=== PATIENT | female | born 1950 | race Caucasian/White ===

== ENCOUNTER 2020-06-04 05:15 | Observation (INO) ==
--- NOTE | 2020-05-16 11:04 | PAT Medication Instructions ---
Medication Instructions Date of Service May 16, 2020 Home Medications Calcium Elemental 800 mg PO HS Curcumin Otc 40 mg PO QAM cholecalciferol (vitamin D3) [Vitamin D3] 50 mcg PO HS glucosamine-chondroitin [Osteo Bi-Flex] 1 tab PO BID meloxicam 15 mg PO QAM naproxen sodium 440 mg PO HS omega 9-jty-rtk-fish oil [Fish Oil] 1,200 cap PO HS omeprazole 20 mg PO BID ICaps 1 tab PO BID ASK your surgeon for instructions meloxicam 15 mg PO QAM naproxen sodium 440 mg PO HS STOP taking 2 weeks before surgery (or as soon as possible if surgery is within 2 weeks) Curcumin Otc 40 mg PO QAM glucosamine-chondroitin [Osteo Bi-Flex] 1 tab PO BID omega 0-hla-fum-fish oil [Fish Oil] 1,200 cap PO HS ICaps 1 tab PO BID Take morning of surgery omeprazole 20 mg PO BID Take evening before surgery Calcium Elemental 800 mg PO HS cholecalciferol (vitamin D3) [Vitamin D3] 50 mcg PO HS omeprazole 20 mg PO BID Other Notes If you have any questions please call us at [phone] or [phone] or [phone] or [phone]
--- NOTE | 2020-05-20 14:37 | Anesthesiology Consultation ---
Date of Service May 20, 2020 Assessment & Plan (1) Encounter for pre-operative examination: COVID Status: As of 05/20 assessment, patient denies travel to endemic area, known exposure/sick contacts, or symptoms of COVID19. Patient instructed that they and their household members must follow strict social distancing guidelines, wear a mask in public and avoid travel/events/gatherings for 14 days prior to surgery. Preoperative COVID19 testing to be completed prior to surgery per surgeon's arrangements. Patient made aware to self-isolate as much as possible between COVID testing and surgery. PATIENT GOES BY "[facility]." Chart Review Chart Review: Acceptable Risk for Surgery (pending surgeon ordered PCP clearance) and Patient seen in Pre Admission Testing Teaching & Discussion Instructed NPO after midnight before surgery, except medications with 15 cc of water. Medication instructions provided according to the PAT guidelines. History Surgery Operation Date: 06/04/20 07:45 Proposed Procedures p Right Total Knee Arthroplasty - Adonis Caldera, Height/Weight Height: 5 ft 5 in Weight: 106.5 kg Allergies Allergy/AdvReac Type Severity Reaction Status Date / Time nickel Allergy Unknown ITCHY WITH Verified 05/07/20 15:05 PROLONGED EXPOSURE Tetanus Vaccines and Toxoid Allergy Unknown ARM SWELLED Verified 05/07/20 15:04 Medications Home Medications Medication Instructions Recorded Confirmed Last Taken Calcium Elemental 800 mg PO HS 05/07/20 05/07/20 Unknown Curcumin Otc 40 mg PO QAM 05/07/20 05/07/20 Unknown cholecalciferol (vitamin D3) 50 mcg PO HS 05/07/20 05/07/20 Unknown [Vitamin D3] glucosamine-chondroitin [Osteo 1 tab PO BID 05/07/20 05/07/20 Unknown Bi-Flex] meloxicam 15 mg PO QAM 05/07/20 05/07/20 Unknown naproxen sodium 440 mg PO HS 05/07/20 05/07/20 Unknown omega 1-cdh-gzo-fish oil [Fish Oil] 1,200 cap PO HS 05/07/20 05/07/20 Unknown omeprazole 20 mg PO BID 05/07/20 05/07/20 Unknown mniK-[id number]-P-V-ivmjlj-vcvqhsr-min 1 tab PO BID 05/07/20 05/07/20 Unknown [ICaps] Past Medical History Medical History (Updated 05/20/20 @ 14:40 by Asa Echevarria) Chronic back pain Diverticular disease GERD (gastroesophageal reflux disease) SOB (shortness of breath) on exertion SEDENTARY LIFESTYLE Exercise / Class Metabolic Activity II 4-5 Yardwork/Stairs/Walk up hill (Has to go up 10 steps into her house daily, mild SOB at the top, denies any chest pain) Past Family History Family History (Updated 05/07/20 @ 15:14 by Ting Carrera RN) Grandfather (Paternal) Family history of diabetes mellitus Grandmother (Paternal) Family history of diabetes mellitus Brother Family history of diabetes mellitus Sister Family history of diabetes mellitus Past Surgical History Surgical History History of bilateral tubal ligation History of colonoscopy History of esophagogastroduodenoscopy (EGD) Past Anesthesia History No Hx of Anesthesia Complications and No Family Hx of Anesthesia Complications History of PONV No Hx of PONV and No Hx of Motion Sickness Social History Smoking Status: Never smoker Do You Dip or Chew Tobacco: No Hx Alcohol Use: No Hx Substance Use: No Review of Systems Pt denies any recent chest pain, shortness of breath, palpitations, cough, fever, URI, or uncontrolled acid reflux (controlled with PPI). Physical Exam Vital Signs BP: 132/76 P: 88bpm SPO2: 97% RA T: 98.7 F R: 16 ENMT Mouth: + chipped teeth (chips in rear molars); no dental restorations and no loose teeth Thyromental Distance: > or= 3.5 Finger Breadths Mallampati Class: I Neck + short neck; neck extension not limited Respiratory normal respiratory effort, lungs clear to auscultation Cardiovascular RRR, no murmur, no edema Testing Laboratory Results 05/20/20 14:49 05/20/20 14:49 PT 10.4 Seconds (9.0-12.0) 05/20/20 14:49 INR 1.0 (0.9-1.1) 05/20/20 14:49 APTT 27.9 Seconds (21.0-31.0) 05/20/20 14:49 Hemoglobin A1c 5.8 % (4.5-5.6) H 05/20/20 14:49 Urine Color Dark Yellow 05/20/20 14:49 Urine Appearance Clear (Clear) 05/20/20 14:49 Urine pH 6.0 (4.5-7.5) 05/20/20 14:49 Ur Specific [place] 1.020 (1.000-1.030) 05/20/20 14:49 Urine Protein Negative (Negative) 05/20/20 14:49 Urine Glucose (UA) Negative (Negative) 05/20/20 14:49 Urine Ketones Trace (Negative) H 05/20/20 14:49 Urine Nitrite Negative (Negative) 05/20/20 14:49 Ur Leukocyte Esterase 1+ (Negative) H 05/20/20 14:49 Urine WBC (Auto) 1-5 /hpf (0-5) 05/20/20 14:49 Urine RBC (Auto) 0-4 /hpf (0-4) 05/20/20 14:49 U Hyaline Cast (Auto) 1-5 /lpf (0-5) 05/20/20 14:49 U Epithel Cells (Auto) >30 /lpf (0-5) H 05/20/20 14:49 Urine Bacteria (Auto) Negative (Negative) 05/20/20 14:49 Blood Type O Positive 05/20/20 14:49 Antibody Screen NEGATIVE 05/20/20 14:49 Electrocardiogram Date: 05/20/20 Findings: + NSR @ (79bpm) Chest X-Ray Date: 05/20/20 Findings: + NAD
--- NOTE | 2020-05-20 15:36 | XRay Report ---
XR chest Pre-admission PA/Lat CLINICAL HISTORY: Preoperative chest COMPARISON STUDY: No previous studies for comparison. FINDINGS: The cardiac and mediastinal contours are normal. There is no evidence of focal pulmonary co nsolidation. There is no evidence of failure. No pleural effusions are visualized.[ IMPRESSION: No active disease in the chest. ACT 112: Negative or not required by law. Electronically signed by: Saman Diamond M.D. 05/20/2020 3:35 PM
[2020-05-20 16:13] LABS: Basophils # (auto) 0.03 K/uL (0-0.2); Basophils % (auto) 0.5 %; Eosinophils # (auto) 0.22 K/uL (0-0.5); Eosinophils % (auto) 3.4 %; Hematocrit (blood only) 44.5 % (37-47); Hemoglobin 14.7 g/dL (12.0-16.0); Lymphocytes # (auto) 2.17 K/uL (1.2-3.4); Lymphocytes % (auto) 33.2 %; Mean Corpuscular Hemoglobin 28.3 pg (25-34); Mean Corpuscular Volume 85.7 fL (80-100); Mean Platelet Volume 10.2 fL (7.4-10.4); Monocytes # (auto) 0.48 K/uL (0.11-0.59); Monocytes % (auto) 7.4 %; Neutrophils # (auto) 3.63 K/uL (1.4-6.5); Neutrophils % (auto) 55.5 %; Platelet Count 305 K/uL (130-400); RDW Standard Deviation 46.8 fL (36.4-46.3); Red Blood Count 5.19 M/uL (4.2-5.4); White Blood Count 6.53 K/uL (4.8-10.8)
[2020-05-20 16:19] LABS: Appearance Urine Clear (Clear); Bacteria Urine Automated Negative (Negative); Bilirubin Urine Negative (Negative); Blood Urine Negative (Negative); Color Urine Dark Yellow; Epithelial Cell Urine Auto >30 /lpf (0-5); Glucose Urine UA Negative (Negative); Ketones Urine Trace (Negative); Leukocyte Esterase Urine 1+ (Negative); Nitrite Urine Negative (Negative); Protein Urine Negative (Negative); RBC Urine Automated 0-4 /hpf (0-4); Urobilinogen Urine Negative (Negative)
[2020-05-20 16:27] LABS: Partial Thromboplastin Time 27.9 Seconds (21.0-31.0); Prothrombin Time 10.4 Seconds (9.0-12.0)
[2020-05-20 16:39] LABS: Albumin Level 3.7 gm/dl (3.4-5.0); BUN Creatinine Ratio 11.4 (10-20); Calcium 9.6 mg/dl (8.5-10.1); Creatinine Clr Calc Pharmacy 71.9 ml/min; Est GFR (African American) 74.7; Est GFR (Non-African American) 64.4; Potassium 4.4 mmol/L (3.5-5.1)
--- NOTE | 2020-05-20 16:49 | Electrocardiogram Report ---
Test Reason : Blood Pressure : / mmHG Vent. Rate : 079 BPM Atrial Rate : 079 BPM P-R Int : 156 ms QRS Dur : 088 ms QT Int : 382 ms P-R-T Axes : 051 063 030 degrees QTc Int : 438 ms Normal sinus rhythm Normal ECG No previous ECGs available Confirmed by Sergio Azar ([id number]) on 05/20/2020 4:48:37 PM Referred By: Adonis Caldera Confirmed By:Chip Azar
[2020-05-21 06:31] LABS: Estimated Average Glucose 120 mg/dl; Hemoglobin A1C 5.8 % (4.5-5.6)
--- NOTE | 2020-06-02 10:53 | History & Physical Report ---
Date of Service June 04, 2020 Assessment & Plan (1) Degenerative joint disease of knee, right: I have indicated the patient for right total knee replacement. The risks, benefits and complications of surgery were explained to the patient which include but not limited to infection, acute blood loss, DVT/PE, injury to nerves, vessels, bone, soft tissue, arthrofibrosis, chronic pain, failure of the prosthesis, knee dislocation, leg length discrepancy, need for additional surgery, cardiac and pulmonary events and . The patient wished to proceed with surgery and informed consent was obtained at this time. We will plan for 81mg ASA BID post-operatively for DVT prophylaxis. Upon discharge the patient will be discharged home with home health services. Appropriate clearances by PCP were obtained. History of Present Illness Chief Complaint: Right knee pain/DJD Primary Care Provider: Nathaniel Mendosa DO The patient is a 70 year old female who presents with complaints of severe right knee pain and DJD. The patient has failed outpatient conservative treatments to this point which included NSAIDs, Bracing, IA corticosteroid i njection, PT and a home exercise/walking program. The patient's pain and limited function have progressed to the point where they severely hinder their activities of daily living and they no longer tolerate exercise programs. They are requesting to proceed with total knee replacement surgery. Allergies Allergy/AdvReac Type Severity Reaction Status Date / Time nickel Allergy Unknown ITCHY WITH Verified 06/04/20 05:46 PROLONGED EXPOSURE Tetanus Vaccines and Toxoid Allergy Unknown ARM SWELLED Verified 06/04/20 05:46 Home Medications Medication Instructions Recorded Confirmed Type Calcium Elemental 800 mg PO HS 05/07/20 06/04/20 History Curcumin Otc 40 mg PO QAM 05/07/20 06/04/20 History cholecalciferol (vitamin D3) 50 mcg PO HS 05/07/20 06/04/20 History [Vitamin D3] glucosamine-chondroitin [Osteo 1 tab PO BID 05/07/20 06/04/20 History Bi-Flex] meloxicam 15 mg PO QAM 05/07/20 06/04/20 History naproxen sodium 440 mg PO HS 05/07/20 06/04/20 History omega 6-kaw-ivm-fish oil [Fish Oil] 1,200 cap PO HS 05/07/20 06/04/20 History omeprazole 20 mg PO BID 05/07/20 06/04/20 History ykuC-E4-Y-X-znyetx-sqdqteb-min 1 tab PO BID 05/07/20 06/04/20 History [ICaps] Past Med/Surg History Medical History Chronic back pain Diverticular disease GERD (gastroesophageal reflux disease) SOB (shortness of breath) on exertion SEDENTARY LIFESTYLE Surgical History History of bilateral tubal ligation History of colonoscopy History of esophagogastroduodenoscopy (EGD) Family History Grandfather (Paternal) Family history of diabetes mellitus Grandmother (Paternal) Family history of diabetes mellitus Brother Family history of diabetes mellitus Sister Family history of diabetes mellitus Social History Smoking Status: Never smoker Do You Dip or Chew Tobacco: No; Hx Alcohol Use: No Hx Substance Use: No Preferred Language: Barbadian Communication Ability: Effective Sonography Technician Required: No Beliefs That Will Affect Care: None Current Living Situation: Spouse Other Information That Helps Us Care for You: No Feels Safe at Home: Yes Safety Concerns: Feels Safe At This Time Assistive Devices: Brace/Splint/Immobilizer, Cane and Glasses Review of Systems Review of Systems: All systems reviewed & are unremarkable except as noted in HPI & below Constitutional: as per Subjective / HPI Physical Exam Physical Exam: RLE NVSI +EHL/FHL/TA/GS SILT grossly, +2 DP pulse, compartments soft NT, limited painful ROM of the knee, 10-95 degrees flexion, + crepitus. Constitutional: WD/WN, vitals as above Eyes: PERRL, conjunctivae normal, anicteric sclerae ENMT: external ear and nose normal, oropharynx normal Neck: trachea midline, no thyromegaly Respiratory: normal respiratory effort, lungs clear to auscultation Cardiovascular: RRR, no murmur, no edema Gastrointestinal (Abdomen): normal bowel sounds, soft, nontender, no hepatosplenomegaly Musculoskeletal: no cyanosis or clubbing, extremities motor strength 5/5 Skin: no rashes, warm and dry Neurologic: patellar DTR's 2+ bilat, sensation intact Psychiatric: A+Ox3, euthymic affect Lymphatic: no cervical or axillary lymphadenopathy Results & Data Results & Data ([facility]) Diagnostic Findings Multiple views of the knee demonstrates severe tricompartmental DJD with complete loss of the lateral and PF joint space. +osteophytes, +sclerosis, +subchondral cysts. Pre Admission Testing Addendum Laboratory Results 05/20/20 14:49 05/20/20 14:49 PT 10.4 Seconds (9.0-12.0) 05/20/20 14:49 INR 1.0 (0.9-1.1) 05/20/20 14:49 APTT 27.9 Seconds (21.0-31.0) 05/20/20 14:49 Hemoglobin A1c 5.8 % (4.5-5.6) H 05/20/20 14:49 Urine Color Dark Yellow 05/20/20 14:49 Urine Appearance Clear (Clear) 05/20/20 14:49 Urine pH 6.0 (4.5-7.5) 05/20/20 14:49 Ur Specific [place] 1.020 (1.000-1.030) 05/20/20 14:49 Urine Protein Negative (Negative) 05/20/20 14:49 Urine Glucose (UA) Negative (Negative) 05/20/20 14:49 Urine Ketones Trace (Negative) H 05/20/20 14:49 Urine Nitrite Negative (Negative) 05/20/20 14:49 Ur Leukocyte Esterase 1+ (Negative) H 05/20/20 14:49 Urine WBC (Auto) 1-5 /hpf (0-5) 05/20/20 14:49 Urine RBC (Auto) 0-4 /hpf (0-4) 05/20/20 14:49 U Hyaline Cast (Auto) 1-5 /lpf (0-5) 05/20/20 14:49 U Epithel Cells (Auto) >30 /lpf (0-5) H 05/20/20 14:49 Urine Bacteria (Auto) Negative (Negative) 05/20/20 14:49 Blood Type O Positive 05/20/20 14:49 Antibody Screen NEGATIVE 05/20/20 14:49 05/20/20 14:49 Urine Culture - Final Urine,Clean Catch Three types of organisms present, all low counts probable skin christina. No further identifications or sensitivities to follow.
[~2020-06-04 05:15] MED LIST: TRANEXAMIC ACID 1,000 MG **IV Pre-op IV SCH
[2020-06-04] MEDS ORDERED: ceFAZolin 2000MG 2,000 MG/15 ML SYR IV SCH (06:00)
[2020-06-04] MEDS ORDERED: ROPIVACAINE 0.5% HCL/PF 150 MG, BUPIVACAINE 0.75% MPF 20 ML, EPINEPHrine 30MG/30ML (OR ... INSTIL SCH (06:00)
[2020-06-04] MEDS ORDERED: TRANEXAMIC ACID 1,000 MG **IV Pre-op IV SCH ×2 (06:00)
[2020-06-04] MEDS ORDERED: CeleBREX 200 MG CAP PO SCH (06:00)
[2020-06-04] MEDS ORDERED: FAMOTIDINE 20 MG TAB PO SCH (06:00)
[2020-06-04] MEDS ORDERED: dexAMETHasone 4 MG TAB PO SCH (06:00)
[2020-06-04] MEDS ORDERED: LR 500ML BOLUS, THEN 15ML/HR IV SCH (06:00)
[2020-06-04] MEDS ORDERED: METOCLOPRAMIDE HCL 10 MG TABLET PO SCH (06:00)
[2020-06-04] MEDS ORDERED: TRANEXAMIC ACID 1,000 MG **IV Intra-op IV SCH (06:15)
[2020-06-04] MEDS ORDERED: BUPIVACAINE 0.5 % 5 MG/1 ML PF 10ML VIAL ONE (06:24)
[2020-06-04] MEDS ORDERED: EPINEPHrine INJ 1 MG/ML AMP ONE (06:24)
[2020-06-04] MEDS ORDERED: BUPIVACAINE 0.25% 30 ML VIAL ONE (06:25)
[2020-06-04] MEDS ORDERED: fentaNYL citrate 100 MCG/2 ML VIAL ONE (06:47)
[2020-06-04] MEDS ORDERED: PROPOFOL IV EMULSION 10 MG/ML 20 ML VIAL IV ONE ×3 (06:47→08:39)
[2020-06-04] MEDS ORDERED: LIDOCAINE HCL 2% 2 ML VIAL/AMP(20MG/ML) INFIL ONE (06:47)
[2020-06-04] MEDS ORDERED: MIDAZOLAM HCL 1 MG/ML 2ML VIAL ONE ×2 (06:47→07:33)
[2020-06-04] MEDS ORDERED: BACITRACIN INJ 50,000 UNIT VIAL ONE (07:00)
[2020-06-04] MEDS ORDERED: ORTHO JOINT ANESTHETIC ONE (07:00)
--- NOTE | 2020-06-04 07:00 | History & Physical Bridge Note ---
Date of Service June 04, 2020 History & Physical Bridge Note I have examined the patient, reviewed the History & Physical and in the interval since the performance of the History & Physical I have noted the following changes of clinical significance: no changes noted
[2020-06-04] MEDS ORDERED: HYDROmorphone INJ 2 MG/ML SYR/VIAL IV PRN (07:26)
[2020-06-04] MEDS ORDERED: ONDANSETRON INJ 2 MG/ML 2 ML VIAL IV PRN ×2 (07:26→11:13)
[2020-06-04] MEDS ORDERED: PROMETHAZINE HCL 12.5 MG in SODIUM CHLORIDE 0.9% 50 ML IV PRN (07:26)
[2020-06-04] MEDS ORDERED: fentaNYL citrate 100 MCG/2 ML VIAL IV PRN (07:26)
[2020-06-04] MEDS ORDERED: ATROPINE SULFATE 0.1 MG/ML 10ML SYR IV PRN (07:26)
[2020-06-04] MEDS ORDERED: ePHEDrine sulfate 50 MG/ML AMP IV PRN (07:26)
[2020-06-04] MEDS ORDERED: ONDANSETRON INJ 2 MG/ML 2 ML VIAL ONE (07:56)
[2020-06-04] MEDS ORDERED: KETAMINE 50 MG/5 ML SYRINGE ONE (09:05)
[2020-06-04] MEDS ORDERED: GLYCOPYRROLATE 0.2 MG/ML VIAL ONE (09:06)
--- NOTE | 2020-06-04 09:23 | Post Operative Brief Note ---
Immediate Post Op Note v1 Date of Surgery June 04, 2020 Pre & Post Diagnosis Operation Date: 06/04/20 07:15 Pre-Op Diagnosis: Unilateral Priamry Osteoarthritis, Right Knee Post-Op Diagnosis: Unilateral Priamry Osteoarthritis, Right Knee I identified the patient and participated in the time-out.: Yes Procedure Operation Date: 06/04/20 07:15 Actual Procedures p Right Total Knee Arthroplasty(Right) - Adonis Caldera DO Surgeon Adonis Caldera DO Corporate Ethics Officer Cedrick Pineda Estimated Blood Loss 60 Findings Consistent with Post-Op Diagnosis Fluids 1 L LR Specimens Proximal tibia and distal femur bone fragment Drains Hemovac Drain Anesthesia Type Spinal MAC Complications none Disposition Disposition: Recovery Room Overlapping Procedure I was present for: the critical portions of procedure. I was immediately available: during the entire case. Back up surgeon: was not required during procedure.
--- NOTE | 2020-06-04 09:26 | Operative Report ---
Post Operative Report Pre & Post Diagnosis Operation Date: 06/04/20 07:15 Pre-Op Diagnosis: Unilateral Priamry Osteoarthritis, Right Knee Post-Op Diagnosis: Unilateral Priamry Osteoarthritis, Right Knee I identified the patient and participated in the time-out.: Yes Procedure Operation Date: 06/04/20 07:15 Actual Procedures p Right Total Knee Arthroplasty(Right) - Adonis Caldera DO Surgeon Adonis Caldera, Bowling Ball Mold Assembler Cedrick Pineda Estimated Blood Loss 60 Findings Consistent with Post-Op Diagnosis Fluids 1 L LR Specimens Distal femur and proximal tibia bone fragment Anesthesia Type Spinal MAC Complications none Disposition Disposition: Recovery Room Indications The patient is a 70-year-old female presents with long history of severe right knee tricompartmental DJD and failed outpatient conservative treatments including NSAIDs, bracing, injections and home walking/exercise program. The patient's symptoms have progressed to the point where it has been difficult to perform normal activities of daily living. I have indicated the patient for a right total knee arthroplasty, the risks and benefits and complications of the procedure include but are not limited to infection bleeding damage to bone, nerves, vessels, surrounding soft tissue, blood clots, loss of function, leg length discrepancy, dislocation, failure of the components, need for additional surgery and . The patient wished to proceed with surgery at this time and informed consent was obtained. Appropriate clearances were obtained. Description of Procedure COMPONENTS USED: Sujatha persona knee system: Femur size 5 standard titanium, Tibia size D with 30 mm extension, Tibial articulating surface 12 CPS, Patella 32 mm Following induction of spinal anesthesia, a tourniquet was applied to the proximal aspect of the thigh and the patient's right leg was prepped and draped in the usual sterile manner. A timeout was performed, patient identified and site johan confirmed. Appropriate pre-operative IV antibiotics were given. The limb was exsanguinated with an Esmarch bandage and tourniquet was inflated to 300 mmHg. A longitudinal midline incision was made over the anterior knee. Subcutaneous tissue was sharply dissected down to fascia. Electrocautery was used for hemostasis. Next a parapatellar arthrotomy was performed. Patella was everted and the knee was flexed. A Holloway retractor was used to expose the synovium above on the anterior aspect of the femur and removed down to bone. Next, the anterior fat pad was removed to aid in visualization. The medial face of the tibia was cleared of soft tissue first with a Bovie and a thomas elevator. This tissue was retracted posteriorly using a blunt Hohmann. Next, the extra-medullary tibial cutting guide was placed to the anterior aspect of the tibia. The tibia resection level was set taking 2mm from the defective tibial condyle. Resection depth was once again confirmed with carlos wing. The medial and lateral collateral ligament was protected with two Hohmann retractors. The tibia guide was removed and proximal tibial bone fragment removed utilizing straight osteotome, electrocautery and Doe. Next, the distal femur intramedullary canal was accessed utilizing the step drill. The intramedullary distal femur cutting guide was placed into the canal and pinned into place. The distal femur was cut on the 5 degree setting. Next the cutting guide was removed and the femur was sized. Care was taken to ensure appropriate recreational assistant all rotation and 5 degree holes were drilled. A size 5 4-in-1 cutting block was placed on the distal end of the femur and secured into place with two short headed screws. Two bent Hohmann retractors were placed to protect the medial and lateral collateral ligaments. The oscillating saw was used to cut anterior, posterior, anterior chamfer and posterior chamfer. The four and one cutting block was removed and bone fragments excised. Laminar algologist was placed laterally and the ACL and PCL were removed followed by the medial meniscus and posterior medial osteophytes. Aquamantys was utilized for any posterior medial bleeders and Orthomix injected into the posterior medial capsule. A laminar algologist was then placed in the medial compartment and the lateral meniscus and posterior osteophytes were removed. Aquamantys was utilized for any posterior lateral bleeders and Orthomix injected into the posterior lateral capsule. Next, drop maxwell and spacer block were placed with the leg in flexion and extension to assess alignment and flexion/extension gaps. Next, the proximal tibia was assessed and two bent Hohmans were placed medial and lateral to aid in visualization. The appropriate tibia size and rotation was selected and a size D tibial plate was pinned into place with appropriate rotation. Preparation of the tibia was completed utilizing the matching tibial drill and broach. I then turned my attention back to the distal femur in a trial femoral component was impacted into place. Appropriate femoral width was assessed and selected. Next the femur PS box cut guide was placed and cut made with the reciprocal saw and the PS box provisional placed. A trial size 10 PS tibia articular tray was placed and varus-valgus balance assessed in 0 degrees of extension and 30, 60 and 90 degrees of flexion. A final tibial articular surface size 12 CPS was chosen. Assess was gained to the patella and caliper utilized to measure width. The patella reamer was utilized and remaining bone removed with oscillating saw. A size 32 patella button was selected and the patella pegs drilled. Trial patella button was placed and tracking was assessed. The knee was found to be well balanced, well aligned with excellent patella tracking. The trials were removed and final components were obtained and assembled. The knee was irrigated copiously with sterile saline solution mixed with bacitracin. Access to the proximal tibia was once again obtained utilizing to the Hohmans and the proximal tibia and distal femur were dried with lap sponges. The final components were cemented into place and all excess cement was removed. A trial tibial articular surface was placed while cemented hardened. Knee stability was once again assessed and the final component inserted. A Betadine soak was performed. After 3 minutes, the knee was once more irrigated with copious sterile saline solution with bacitracin. The knee was injected with the remaining Orthomix which includes a combination of Ropivicaine 0.5% 150mg, Bupivicaine 0.5%/Epinephrine 1:200,000 30ml, Toradol 30mg, Dexamethasone 4mg, Ketamine 10mg, Clonidine 100mcg and NSS 30ml solution. The capsulotomy was c losed with #1 Vicryl followed by subcutaneous closure with 2-0 Vicryl suture and a 3-0 V-lock suture. Skin closure was performed using Prineo dressing followed by Telfa, 4 x 4s and shawanda wrap. Tourniquet was deflated at 111 minutes. The patient tolerated the procedure well and was taken to the PACU in stable condition. Due to the complex nature of the procedure, the entire surgery was performed with the operational assistance of Cedrick Pineda PA-C. The project assistant, under direct supervision, was involved in the actual performance of all aspects of the surgical procedure including patient positioning, hemostasis, tissue retraction, instrument management and wound closure. I attest to the content of the Intraoperative Record and any orders documented therein. Any exceptions are noted below.
[2020-06-04] MEDS ORDERED: bisacodyL 10 MG SUPP PR PRN (09:44)
[2020-06-04] MEDS ORDERED: diphenhydrAMINE Capsule 25 MG CAP PO PRN (09:44)
[2020-06-04] MEDS ORDERED: HYDROmorphone INJ 0.5 MG/0.5 ML SYR IV PRN (09:44)
--- NOTE | 2020-06-04 10:26 | XRay Report ---
XR knee RT 1 or 2V routine CLINICAL HISTORY: Surgical Post Op COMPARISON: None. DISCUSSION: There are postsurgical changes of a total right knee arthroplasty and patellar resurfacin g. The femoral and tibial components appear well seated. There is gas present within the soft tissues consistent with recent surgery. IMPRESSION: Postsurgical changes of a total right knee arthroplasty. ACT 112: Negative or not required by law. Electronically signed by: Saman Diamond M.D. 06/04/2020 10:25 AM
--- NOTE | 2020-06-04 10:35 | Orthopedic Progress Note ---
Date of Service June 04, 2020 Assessment & Plan (1) Degenerative joint disease of knee, right: Status post right total knee arthroplasty -Ancef x24 -DVT prophylaxis: SCDs, teds, 81 mg ASA twice daily -Weight-bear as tolerated right lower extremity -PT/OT -Postoperative x-ray demonstrates a well aligned well fixed prosthesis without fracture or dislocation -A.m. labs -DC planning Subjective Post Operative Progress Note Patient seen in PACU, comfortable, denies complaints, pain well controlled, no acute issues. Still feeling effects of spinal anesthesia Review of Systems Review of Systems: All systems reviewed & are unremarkable except as noted in HPI & below Constitutional: as per Subjective / HPI Physical Exam Physical Exam: Right lower extremity physical exam limited secondary to spinal anesthesia, +2 dorsalis pedis pulse, compartment soft nontender, dressing clean dry and intact Constitutional: WD/WN, vitals as above Results & Data ([facility]) Vital Signs (Past 12 Hours) Vital Signs Temp Pulse Pulse Resp BP BP Pulse Ox 06/04/20 10:25 36.2 C L 83 13 135/76 94 06/04/20 10:15 83 20 127/80 94 06/04/20 10:05 84 14 142/79 H 97 06/04/20 09:54 36.1 C L 89 16 128/67 98 06/04/20 06:04 37.2 C 85 18 156/100 H 96
--- NOTE | 2020-06-04 10:37 | Anesthesiology Progress Note ---
Date of Service June 04, 2020 Anesthesia Post Procedure Vital Signs Vital Signs: Temp Pulse Pulse Resp BP BP Pulse Ox 06/04/20 10:25 36.2 C L 83 13 135/76 94 06/04/20 10:15 83 20 127/80 94 06/04/20 10:05 84 14 142/79 H 97 06/04/20 09:54 36.1 C L 89 16 128/67 98 06/04/20 06:04 37.2 C 85 18 156/100 H 96 Transfer of Care Handoff Completed per policy Notes Mental Status: alert / awake / arousable and participated in evaluation Patient Amnestic to Procedure: Yes Nausea / Vomiting: adequately controlled Pain: adequately controlled Airway Patency, RR, SpO2: stable & adequate BP & HR: stable & adequate Hydration State: stable & adequate Anesthetic Complications: no major complications apparent and Pt Satisfied with anesthetic care
[2020-06-04] MEDS ORDERED: PNEUMOCOCCAL ADMINISTRATION CHARGE ONE (10:55)
[2020-06-04] MEDS ORDERED: NALOXONE HCL 0.4 MG/1 ML VIAL/CARP IV PRN (11:13)
[2020-06-04] MEDS ORDERED: MAGNESIUM HYDROXIDE SUSP 30 ML UDC PO PRN (11:13)
[2020-06-04] MEDS ORDERED: SODIUM CHLORIDE 0.9% 1000ML 1,000 ML IV SCH (11:13)
[2020-06-04] MEDS ORDERED: METOCLOPRAMIDE HCL INJ 5 MG/ML 2 ML VIAL IV PRN (11:13)
[2020-06-04] MEDS ORDERED: PNEUMOCOCCAL POLYSACCHARIDES 25 MCG/0.5 ML VIAL/SYR IM ONE (11:15)
[2020-06-04] MEDS: KETOROLAC TROMETHAMINE 15 MG/ML VIAL IV SCH ×2 (12:19→17:33)
[2020-06-04] MEDS: ACETAMINOPHEN 500 MG TAB PO SCH ×2 (14:01→21:58)
[2020-06-04] MEDS: ceFAZolin 2000MG 2,000 MG/15 ML SYR IV SCH (16:07)
[2020-06-04] MEDS ORDERED: SENNA 8.6 MG TAB PO SCH (21:00)
[2020-06-04] MEDS: PANTOprazole 40 MG TAB PO SCH (21:59)
[2020-06-04] MEDS: DOCUSATE SODIUM 100 MG CAP PO SCH (21:59)
[2020-06-05] MEDS: ceFAZolin 2000MG 2,000 MG/15 ML SYR IV SCH (00:46)
[2020-06-05] MEDS: KETOROLAC TROMETHAMINE 15 MG/ML VIAL IV SCH ×2 (00:47→06:02)
[2020-06-05] MEDS: ACETAMINOPHEN 500 MG TAB PO SCH ×2 (06:01→14:55)
[2020-06-05 06:10] LABS: Hematocrit (blood only) 36.7 % (37-47); Hemoglobin 12.4 g/dL (12.0-16.0); Mean Corpuscular Hemoglobin 28.4 pg (25-34); Mean Corpuscular Hgb Conc 33.8 g/dL (32-36); Mean Corpuscular Volume 84.2 fL (80-100); Mean Platelet Volume 9.1 fL (7.4-10.4); Platelet Count 258 K/uL (130-400); RDW Coefficient of Variation 14.7 % (11.5-14.5); RDW Standard Deviation 45.5 fL (36.4-46.3); Red Blood Count 4.36 M/uL (4.2-5.4); White Blood Count 11.77 K/uL (4.8-10.8)
[2020-06-05 06:48] LABS: BUN Creatinine Ratio 17.7 (10-20); Calcium 8.9 mg/dl (8.5-10.1); Creatinine Clr Calc Pharmacy 73.7 ml/min; Est GFR (African American) 78.2; Est GFR (Non-African American) 67.5; Potassium 4.2 mmol/L (3.5-5.1)
[2020-06-05] MEDS: oxyCODONE HCL IR 5 MG TAB (IMMEDIATE RELEASE) PO PRN ×2 (08:42→14:55)
[2020-06-05] MEDS: DOCUSATE SODIUM 100 MG CAP PO SCH (08:43)
[2020-06-05] MEDS: PANTOprazole 40 MG TAB PO SCH (08:43)
--- NOTE | 2020-06-05 08:55 | Orthopedic Progress Note ---
Date of Service June 05, 2020 Assessment & Plan (1) Degenerative joint disease of knee, right: Status post right total knee arthroplasty POD#1 -Ancef x24 -DVT prophylaxis: SCDs, teds, 81 mg ASA twice daily -Weight-bear as tolerated right lower extremity -PT/OT -Postoperative x-ray demonstrates a well aligned well fixed prosthesis without fracture or dislocation -A.m. labs - as above, hgb 12.4 -DC planning - home with Admission and Anticipated Discharge Date Admission Date: June 04, 2020 Subjective Post Operative Progress Note Patient seen sitting up in bed, comfortable, denies complaints, pain well controlled, no acute issues. Denies F/C/N/V/SOB/CP. Review of Systems Review of Systems: All systems reviewed & are unremarkable except as noted in HPI & below Constitutional: as per Subjective / HPI Physical Exam Physical Exam: RLE NVSI +EHL/FHL/TA/GS SILT grossly, +2 DP pulse, compartments soft NT, dressing cdi. Constitutional: WD/WN, vitals as above Results & Data ([facility]) Vital Signs (Past 12 Hours) Vital Signs Temp Pulse Resp BP Pulse Ox 06/05/20 07:27 37.1 C 62 16 127/71 97 06/05/20 03:42 37.1 C 76 14 124/74 96 06/04/20 23:30 37.2 C 76 16 118/66 92 Laboratory Results 06/05/20 06/05/20 06/04/20 Range/Units 05:57 05:57 05:39 WBC 11.77 H (4.8-10.8) K/uL RBC 4.36 (4.2-5.4) M/uL Hgb 12.4 (12.0-16.0) g/dL Hct 36.7 L (37-47) % MCV 84.2 (80-100) fL MCH 28.4 (25-34) pg MCHC 33.8 (32-36) g/dL RDW Std Deviation 45.5 (36.4-46.3) fL RDW Coeff of Sobeida 14.7 H (11.5-14.5) % Plt Count 258 (130-400) K/uL MPV 9.1 (7.4-10.4) fL Sodium 142 (136-145) mmol/L Potassium 4.2 (3.5-5.1) mmol/L Chloride 109 H (98-107) mmol/L Carbon Dioxide 26 (21-32) mmol/L Anion Gap 7.0 (3-11) BUN 16 (7-18) mg/dl Creatinine 0.88 (0.6-1.2) mg/dl Est Cr Clr Drug Dosing 73.7 ml/min Est GFR ( Amer) 78.2 Est GFR (Non-Af Amer) 67.5 BUN/Creatinine Ratio 17.7 (10-20) Glucose 114 H (70-99) mg/dl Calcium 8.9 (8.5-10.1) mg/dl Hepatitis C Ab Screen Neg (Neg)
[2020-06-05] MEDS ORDERED: MULTIVITAMIN TAB PO SCH (09:00)
[2020-06-05] MEDS ORDERED: ASPIRIN 81 MG ECTAB PO SCH (09:00)
--- NOTE | 2020-06-05 14:30 | Discharge Summary ---
Date of Service June 05, 2020 Admission HPI Per Admitting Provider The patient is a 70 year old female who presents with complaints of severe right knee pain and DJD. The patient has failed outpatient conservative treatments to this point which included NSAIDs, Bracing, IA corticosteroid injection, PT and a home exercise/walking program. The patient's pain and limited function have progressed to the point where they severely hinder their activities of daily living and they no longer tolerate exercise programs. They are requesting to proceed with total knee replacement surgery. Principal Diagnosis s/p Right total knee replacement -Right knee DJD Discharge Exam RLE NVSI +EHL/FHL/TA/GS SILT grossly, +2 DP pulse, compartments soft NT, dressing cdi. Constitutional WD/WN, vitals as above Discharge Data Allergies Allergy/AdvReac Type Severity Reaction Status Date / Time Tetanus Vaccines and Toxoid Allergy Intermediate ARM SWELLED Verified 06/04/20 07:36 nickel AdvReac Mild ITCHY WITH Verified 06/04/20 07:36 PROLONGED EXPOSURE Consultations 06/04/20 09:44 Consult Case Management - Discharge Planning Routine Procedures Performed Operation Date: 06/04/20 07:15 Actual Procedures p Right Total Knee Arthroplasty(Right) - Adonis Caldera DO Ordered Studies 06/04/20 05:00 US - OR guided needle placemen Routine Hospital Course (1) Degenerative joint disease of knee, right: The patient is a 70 -year-old female who presents with long standing history of severe right knee DJD and failed outpatient conservative treatments. The patient's symptoms have progressed to the point where it has been difficult to perform even normal activities of daily living. I indicated the patient for a right total knee arthroplasty, the risks, benefits and complications of the procedure include but not limited to infection, bleeding, damage to bone, nerves, vessels, surrounding soft tissue, may develop blood clots, loss of function, leg length discrepancy, dislocation, failure of the components, loosening of the components, the need for additional surgery and . The patient wished to proceed with surgery at this time and informed consent was obtained. Hospital Course: On 06/04/20 the patient was taken to the operating room, adequate anesthesia administered and underwent a right total knee arthroplasty. The patient tolerated the procedure well and was taken to the PACU in stable condition. Post-operatively the patient was started on a DVT ppx medication and given appropriate IV antibiotics. Consults were placed to physical therapy, oc cupational therapy and case management. On POD#1, the patient did well overnight and their pain was well controlled. Labs were drawn and the Hgb was 12.4. The patient progressed well with PT. Dressings were changed at this time and the incision was clean, dry and intact. The patients hospital stay was relatively uneventful and they were deemed stable by the orthopedic team and consultants to be discharged home with HH on 06/05/20. Discharge Instructions: Upon discharge the patient may weight bear as tolerates through their operative extremity. They were instructed to keep the incision clean and dry at all times. The patient may shower but should not submerge the incision, avoid bathing, pools and hot tubs. The patient was given a script for pain medication and should take as instructed. The patient was given a script for DVT ppx 81mg ASA BID and should take as directed. The patient was instructed to not drive or travel for long distances until cleared to do so. If the patient develops any symptoms of fevers, chills, nausea, vomiting, increased redness, swelling, pain or drainage from the surgical site, they should notify the office and/or proceed to the nearest emergency room. The patient should follow up in 10-14 days after surgery for their routine post-operative follow-up appointment and should call the office, to confirm the date and time. Status post right total knee arthroplasty POD#1 -Ancef x24 -DVT prophylaxis: SCDs, teds, 81 mg ASA twice daily -Weight-bear as tolerated right lower extremity -PT/OT -Postoperative x-ray demonstrates a well aligned well fixed prosthesis without fracture or dislocation -A.m. labs - as above, hgb 12.4 -DC planning - home with Total Time Total Time Spent Total Time Spent (In Minutes): 30 Discharge Plan Discharge Items Patient Disposition: Home - Home Health Services Reason For Visit: Unilateral Priamry Osteoarthritis, Right Knee Discharge Diagnosis: Right total knee replacement -Right knee DJD Condition on Discharge: Good Activity: Per Instructions section Lifting: Wait until after follow-up appointment Bathing: Keep incision dry Bathing Comment: No bathing, pools or hot tubs. Sexual Activity: Wait until after follow-up appointment Exercise/Sports: Wait until after follow-up appointment Driving/Machine Use: No driving Weightbearing: Full weightbearing Non-emergency contact: Primary Care Provider and Surgeon Call non-emergency contact if: you have any medication questions, your symptoms worsen, your pain is not controlled, your pain is worsening, your pain is unusual for you, your pain is concerning for you, you have a fever, your temperature is above 101, your wound has increased redness, your wound has increased drainage and your wound pain has increased Follow-up/Referrals: Nathaniel Mendosa DO [Primary Care Provider] - Diet: Regular Addtl Attending Provider Instructions: ACTIVITY RECOMMENDATIONS: SELF CARE INSTRUCTIONS AFTER TOTAL KNEE REPLACEMENT A. You may need to continue a physical therapy program after discharge from the hospital. There are several options available to you. Your doctor will assist you in selecting the best one for you. 1. An out-patient facility 2 to 3 times a week for therapy or home therapy. 2. Continue working on all exercises taught to you in the hospital. Your goals should be to increase bending of your knee to 90 degrees and beyond and to fully straighten your knee. B. You may progress at your own pace from walking with a walker or crutches to a cane; then to no assistive devices. C. Make walking a part of your daily routine. Be up as much as comfortable with rest periods throughout the day. Rest with leg elevation is very important. Use the ice wrap frequently for the first 3-4 weeks. D. There are no restrictions on activities. You may ride in a car, shop, participate in grain and yeast plants supervisor and all social activities. E. Wear the long elastic stockings (OSMAR hose) 20 hours a day for 2 weeks after surgery. They can be removed several times a day for laundering and for a bath. F. You may shower, no tub baths until cleared by your doctor. SPECIAL CARE INSTRUCTIONS: VERY IMPORTANT TO READ AND REVIEW A. There are a few signs you need to watch for after you are home. Call [facility] [place] if you notice any of the followin. Increased severe knee pain. Some pain is expected especially when you exercise. 2. Increased swelling in your leg or knee; pain or swelling of the calf muscle in either lower leg. 3. Any fluid drainage from the incision. 4. Shortness of breath or chest pain. B. Please call [facility] at if you have any concerns or questions about your operation or recovery. The doctor or his nurse will return your call promptly. C. You must take antibiotics before dental work, bladder, bowel or other surgery. Your doctor will provide you with a permanent care to carry describing this precaution. IMPORTANT: * REMEMBER TO TAKE ASPIRIN, 81 MG, TWICE DAILY FOR 4 WEEKS UNLESS OTHERWISE DIRECTED. THIS IS YOUR BLOOD THINNER. * HIGH RISK PATIENTS MAY BE PRESCRIBED A STRONGER BLOOD THINNER. THIS WILL BE PROVIDED AT DISCHARGE. * CALL IF INCREASED PAIN, REDNESS, DRAINAGE OR FEVER GREATER THAT 101. * WEAR OSMAR HOSE 20 HOURS PER DAY FOR 2 WEEKS. * YOU MAY HAVE A LARGE BAND-AID LIKE DRESSING (SILVERON). THIS WILL REMAIN ON YOUR INCISION FOR 7 DAYS, THEN CAN BE REMOVED. IF INCISION IS LEAKING THROUGH DRESSING, CALL THE OFFICE . FOLLOW UP VISIT: If appointment is not already scheduled: Please call [facility] to make a follow-up appointment for 2 weeks after your surgery at . Pending Studies at Discharge: No Stand-Alone Forms: My [facility], Opioid Pain Management, Smoking Cessation Medications and DC Order Prescriptions: New celecoxib [Celebrex] 200 mg Capsule 200 mg PO BID PRN (Reason: pain/inflammation) Qty: 28 RF: 0 aspirin 81 mg Tablet,Delayed Release (Dr/Ec) 81 mg PO BID Qty: 56 RF: 0 acetaminophen 500 mg Tablet 1,000 mg PO Q8 PRN (Reason: pain/fevers) Qty: 90 RF: 0 oxycodone 5 mg Tablet 5 mg PO Q6H MDD 4 PRN (Reason: pain) Qty: 30 RF: 0 sennosides [Senokot] 8.6 mg Tablet 17.2 mg PO HS PRN (Reason: constipation) Qty: 28 RF: 0 Continued glucosamine-chondroitin [Osteo Bi-Flex] 250-200 mg Tablet 1 tab PO BID RF: 0 ICaps [id number] Tablet Extended Release 1 tab PO BID RF: 0 cholecalciferol (vitamin D3) [Vitamin D3] 50 mcg (2,000 unit) Capsule 50 mcg PO HS RF: 0 omega [id number]-fish oil [Fish Oil] 1,200 (144-216) mg Capsule 1,200 cap PO HS RF: 0 Calcium Elemental 800 mg PO HS RF: 0 omeprazole 20 mg Tablet,Delayed Release (Dr/Ec) 20 mg PO BID RF: 0 Curcumin Otc 40 mg PO QAM RF: 0 Discontinued meloxicam 15 mg Tablet 15 mg PO QAM RF: 0 naproxen sodium 220 mg Capsule 440 mg PO HS RF: 0 Discharge Orders: Discharge Order (Routine); Ordered 06/05/20 Ordered By: Adonis May/Other Patient Handouts: Total Knee Replacement Admission Data Admit Date/Time: 06/04/20 10:00 Attending Provider: Adonis Caldera Admit Provider: Adonis Caldera Primary Care Provider: Nathaniel Mendosa Other Interventions: Discharge Summary Assessment (RN) Last Done: 06/05/20 14:30
[2020-06-05] MEDS ORDERED: CeleBREX 200 MG CAP PO SCH (21:00)
== END 2020-06-05 15:00 | disposition home health service (06) ==
LOC: 3E 05:15 → ASU 05:15
DX: M17.11 Unilateral primary osteoarthritis, right knee; K21.9 Gastro-esophageal reflux disease without esophagitis; Z88.7 Allergy status to serum and vaccine; Z79.899 Other long term (current) drug therapy